=== PATIENT | female | born 1990 | race Caucasian/White ===

== ENCOUNTER 2024-04-20 01:18 | Emergency (ER) | payer OTHER ==
[~2024-04-20] VITALS: Ht 167.6 cm; Wt 59.1 kg
[2024-04-20 01:28] VITALS: BP 125/48; PULSE 99; RESP 17; TEMP 97.4; O2SAT 100
== END 2024-04-20 01:44 ==
LOC: ER 01:19 → EDBD 01:19 → ER 01:44
DX: Z02.89 Encounter for other administrative examinations (principal); F10.129 Alcohol abuse with intoxication, unspecified
CPT/HCPCS: 99283